=== PATIENT | female | born 1985 | race Caucasian/White ===

== ENCOUNTER 2016-10-10 17:22 | Emergency (ER) | payer OTHER ==
[~2016-10-10] VITALS: Ht 157.4 cm; Wt 68.0 kg
[~2016-10-10 17:22] MED LIST: ADDERALL XR 3030 MG PO; AMOXICILLIN500 MG PO; AMOXIL500 MG PO; ANAPROX DS550 MG PO; AUGMENTIN 875 M1 TAB PO; BACTRIM DS 8001 TA1 PO; CEPHALEXIN500 M1 PO; CYCLOBENZAPRINE10 MG PO; DARVOCET N 1001 TAB PO; HYDROCODONE BIT1 T11 PO; MACROBID100 M1 PO; MOTRIN800 MG PO; NAPROSYN500 MG PO; NEURONTIN300 MG PO; NEURONTIN600 MG PO; PEN-VEE K500 MG PO; PROVENTIL0.09 MG/AC IH; PYRIDIUM200 M1 PO; Phenergan25 MG PO; ROBAXIN750 MG PO; SEPTRA DS 800 M1 TAB PO; TRAMADOL HCL50 MG PO; VISTARIL25 MG PO; VISTARIL50 MG PO; ZITHROMAX Z PA250 MG PO; ZOFRAN ODT4 MG SL; ZOFRAN4 MG PO
[2016-10-10] MEDS ORDERED: SUBOXONE 2 MG-1 EACH SL (17:49)
[2016-10-10 17:53] LABS: HEMATOCRIT 39.3 % (37.0-47.0); HEMOGLOBIN 13.2 g/dl (12.0-16.0); MEAN CORPUSCULAR HGB 30.6 pg (27.0-31.0); MEAN CORPUSCULAR HGB CONC 33.6 g/dl (33.0-37.0); MEAN PLATELET VOLUME 10.4 fl (9.6-12.3); PLATELET COUNT AUTOMATED 227 10*3/uL (130-400); RED BLOOD COUNT 4.32 10*6/uL (4.10-5.10); RED CELL DISTRI WIDTH 14.5 % (0-14.5); WHITE BLOOD COUNT 26.9 10*3/uL (4.8-10.8)
[2016-10-10 18:19] LABS: EOSINOPHIL # 0.8 10*3/uL (0-0.4); EOSINOPHILS 3 % (1-4); LYMPHOCYTE # 1.9 10*3/uL (1.3-4.4); MONOCYTE # 1.3 10*3/uL (0.1-1.0); NEUTROPHIL # 22.9 10*3/uL (2.3-7.9); NEUTROPHILS 85 % (47-73); TOTAL CELLS COUNTED 100 #CELLS
[2016-10-10 18:20] LABS: PLATELET SUFFICIENCY NORMAL (NORMAL)
[2016-10-10 18:43] LABS: BUN 15 mg/dl (7-24); CARBON DIOXIDE 24 mmol/L (21-32); CHLORIDE 104 mmol/L (98-107); EST GLOM FILT AFRICAN AMERICAN > 60 ml/min; GLUCOSE 121 mg/dL (65-99); POTASSIUM 3.7 mmol/L (3.5-5.1); SODIUM 137 mmol/L (136-145)
[2016-10-10] MEDS ORDERED: CLINDAMYCIN HC300 MG PO (19:42)
== END 2016-10-10 19:50 | disposition home or self-care (01) ==
LOC: ED 17:22
PROVIDERS: Physician Assistant
DX: J03.90 Acute tonsillitis, unspecified (principal); F17.200 Nicotine dependence, unspecified, uncomplicated; Z88.0 Allergy status to penicillin; Z79.899 Other long term (current) drug therapy

== ENCOUNTER 2017-03-24 17:40 | Emergency (ER) | payer OTHER ==
[~2017-03-24] VITALS: Wt 70.3 kg
[~2017-03-24 17:40] MED LIST changes: +CLINDAMYCIN HC300 MG PO; +SUBOXONE 2 MG-1 EACH SL
[2017-03-24] MEDS ORDERED: VISTARIL25 MG PO (17:46)
[2017-03-24] MEDS ORDERED: CLINDAMYCIN HC300 MG PO (17:51)
== END 2017-03-24 17:59 | disposition home or self-care (01) ==
LOC: ED 17:40
DX: K08.89 Other specified disorders of teeth and supporting structures (principal); F17.200 Nicotine dependence, unspecified, uncomplicated; Z88.0 Allergy status to penicillin; Z79.899 Other long term (current) drug therapy

== ENCOUNTER 2018-03-31 16:30 | Emergency (ER) | payer OTHER ==
[~2018-03-31] VITALS: Wt 68.0 kg
[2018-03-31] MEDS ORDERED: PREDNISONE20 M1 PO (16:40)
[2018-03-31] MEDS ORDERED: BENADRYL25 M2 PO (16:40)
[2018-03-31] MEDS ORDERED: PREDNISONE10 MG PO (16:46)
== END 2018-03-31 17:05 | disposition home or self-care (01) ==
LOC: ED 16:30
DX: L25.9 Unspecified contact dermatitis, unspecified cause (principal); F17.200 Nicotine dependence, unspecified, uncomplicated; Z88.0 Allergy status to penicillin; Z88.1 Allergy status to other antibiotic agents; Z79.899 Other long term (current) drug therapy

== ENCOUNTER 2018-05-10 05:35 | Emergency (ER) | payer OTHER ==
[~2018-05-10] VITALS: Ht 157.4 cm; Wt 74.8 kg
[~2018-05-10 05:35] MED LIST changes: +BENADRYL25 M2 PO; +PREDNISONE10 MG PO; +PREDNISONE20 M1 PO
[2018-05-10] MEDS ORDERED: CLINDAMYCIN HC300 MG PO (06:27)
== END 2018-05-10 06:50 | disposition home or self-care (01) ==
LOC: ED 05:35
DX: K02.9 Dental caries, unspecified (principal); F17.200 Nicotine dependence, unspecified, uncomplicated; Z88.0 Allergy status to penicillin; Z79.899 Other long term (current) drug therapy

== ENCOUNTER → 2018-06-18 | Outpatient (CLI) | payer OTHER ==
--- NOTE | ~2018-06-18 | EKG ---
[place], [place] ELECTROCARDIOGRAM REPORT NAME: CHUCKY AC UNIT #: [id number] ROOM: DOCTOR: EPIPHVANDA DRAFT REPORT BIRTHDATE: [birth year] [facility] Test Date: 2018-06-18 Test Time: 11:15:25 Pat Name: CHUCKY AC Department: Room: Gender: F [employer] Manager: Sindy Gamino : 1985 Requested By: SARA MONTOYA Order Number: [id number] Reading MD: Harjit Gutierrez MD Measurements Intervals [place] Rate: 85 P: 55 [place]: 142 QRS: 66 QRSD: 66 T: 45 QT: 365 QTc: 434 Interpretive Statements Sinus rhythm Nonspecific ST T changes Electronically Signed On 06-18-2018 11:29:29 PDT by Harjit Gutierrez MD CM:EKGRPT:ELECTROCARDIOGRAM REPORT [id number] SARA SEE DRAFT REPORT SARA MONTOYA
== END | disposition home or self-care (01) ==
LOC: CARD 10:59 → LAB 10:59
DX: Z51.81 Encounter for therapeutic drug level monitoring (principal); F90.9 Attention-deficit hyperactivity disorder, unspecified type; Z79.899 Other long term (current) drug therapy

== ENCOUNTER → 2018-08-04 | Outpatient (CLI) | payer OTHER ==
[2018-08-04 12:44] LABS: URINE AMPHETAMINES > 1000 (1000ng/ml); URINE BARBITURATES < 200 (200ng/ml); URINE BENZODIAZEPINES < 200 (200ng/ml); URINE CANNABINOIDS (THC) < 50 (50ng/ml); URINE COCAINE < 300 (300ng/ml); URINE METHADONE < 300 (300ng/ml); URINE OPIATES < 300 (300ng/ml)
[2018-08-04 12:45] LABS: URINE PHENCYCLIDINE < 25 (25ng/ml)
== END | disposition home or self-care (01) ==
LOC: LAB 12:00
PROVIDERS: Internal Medicine
DX: F11.20 Opioid dependence, uncomplicated (principal)

== ENCOUNTER 2019-06-25 19:47 | Emergency (ER) | payer OTHER ==
[~2019-06-25] VITALS: Ht 157.4 cm; Wt 59.0 kg
[2019-06-25 20:19] LABS: BASO # 0.1 10*3/uL (0.0-0.1); BASO % 0.6 % (0.0-1.0); EOS # 0.3 10*3/uL (0.0-0.4); EOS % 2.8 % (1.0-4.0); HEMATOCRIT 39.4 % (37.0-47.0); HEMOGLOBIN 12.9 g/dl (12.0-16.0); LYMPH # 2.7 10*3/uL (1.3-4.4); LYMPH % 29.2 % (27.0-41.0); MEAN CELL VOLUME 93.1 fl (81.0-99.0); MEAN CORPUSCULAR HGB 30.5 pg (27.0-31.0); MEAN CORPUSCULAR HGB CONC 32.7 g/dl (33.0-37.0); MEAN PLATELET VOLUME 9.6 fl (9.6-12.3); MONO # 0.7 10*3/uL (0.1-1.0); NEUT # 5.5 10*3/uL (2.3-7.9); NEUT % 59.2 % (47.0-73.0); PLATELET COUNT AUTOMATED 334 10*3/uL (130-400); RED BLOOD COUNT 4.23 10*6/uL (4.10-5.10); WHITE BLOOD COUNT 9.3 10*3/uL (4.8-10.8)
[2019-06-25 20:34] LABS: ALBUMIN 3.9 gm/dl (3.1-4.5); ALKALINE PHOSPHATASE 94 U/L (45-117); BUN 16 mg/dl (7-24); CHLORIDE 107 mmol/L (98-107); CREATININE 0.83 mg/dL (0.55-1.02); POTASSIUM 3.9 mmol/L (3.5-5.1); SGOT/AST 25 IU/L (3-35); SGPT/ALT 32 U/L (12-78); SODIUM 138 mmol/L (136-145); TOTAL PROTEIN 7.6 gm/dL (6.4-8.2)
[2019-06-25 20:35] LABS: ACETAMINOPHEN (TYLENOL) < 5.0 ug/ml (10-30)
[2019-06-25 20:39] LABS: B-hCG (QUALITATIVE) NEGATIVE (NEGATIVE)
[2019-06-25 20:40] LABS: ETHYL ALCOHOL < 3.0 mg/dl (<3)
[2019-06-26 08:17] LABS: URINE AMPHETAMINES > 1000 (1000ng/ml); URINE BARBITURATES < 200 (200ng/ml); URINE BENZODIAZEPINES < 200 (200ng/ml); URINE CANNABINOIDS (THC) > 50 (50ng/ml); URINE COCAINE < 300 (300ng/ml); URINE METHADONE < 300 (300ng/ml); URINE OPIATES < 300 (300ng/ml)
[2019-06-26 08:18] LABS: URINE PHENCYCLIDINE < 25 (25ng/ml)
[2019-06-26 08:25] LABS: BACTERIA 1+; BILIRUBIN NEGATIVE (NEGATIVE); BLOOD NEGATIVE (NEGATIVE); CLARITY SL CLOUDY (CLEAR); COLOR YELLOW (YELLOW); GLUCOSE NEGATIVE (NEGATIVE); KETONE NEGATIVE (NEGATIVE); LEUKO ESTERASE NEGATIVE (NEGATIVE); NITRITE NEGATIVE (NEGATIVE); UROBILINOGEN 0.2 E.U./dl (0.2-1.0)
== END 2019-06-26 12:48 | disposition home health service (06) ==
LOC: ED 19:47
PROVIDERS: Emergency Medicine Emergency Medical Services
DX: F31.9 Bipolar disorder, unspecified (principal); F17.200 Nicotine dependence, unspecified, uncomplicated; Z88.0 Allergy status to penicillin; Z79.899 Other long term (current) drug therapy; Z79.2 Long term (current) use of antibiotics

== ENCOUNTER 2020-01-22 05:56 | Emergency (ER) | payer OTHER ==
[~2020-01-22] VITALS: Ht 157.4 cm; Wt 68.0 kg
[2020-01-22 06:48] LABS: BASO % 0.2 % (0.0-1.0); EOS # 0.2 10*3/uL (0.0-0.4); EOS % 1.2 % (1.0-4.0); HEMATOCRIT 36.5 % (37.0-47.0); LYMPH # 1.4 10*3/uL (1.3-4.4); LYMPH % 9.2 % (27.0-41.0); MEAN CORPUSCULAR HGB 29.9 pg (27.0-31.0); MEAN CORPUSCULAR HGB CONC 32.9 g/dl (33.0-37.0); MEAN PLATELET VOLUME 9.2 fl (9.6-12.3); MONO # 0.7 10*3/uL (0.1-1.0); MONO % 4.5 % (3.0-9.0); NEUT % 84.2 % (47.0-73.0); PLATELET COUNT AUTOMATED 287 10*3/uL (130-400); RED BLOOD COUNT 4.01 10*6/uL (4.10-5.10); RED CELL DISTRI WIDTH 13.3 % (0-14.5); WHITE BLOOD COUNT 15.4 10*3/uL (4.8-10.8)
[2020-01-22 07:03] LABS: ALBUMIN 3.5 gm/dl (3.1-4.5); ALKALINE PHOSPHATASE 75 U/L (45-117); BUN 20 mg/dl (7-24); CHLORIDE 111 mmol/L (98-107); CREATININE 0.72 mg/dL (0.55-1.02); POTASSIUM 3.3 mmol/L (3.5-5.1); SGOT/AST 47 IU/L (3-35); SGPT/ALT 40 U/L (12-78); SODIUM 143 mmol/L (136-145); TOTAL PROTEIN 6.7 gm/dL (6.4-8.2)
[2020-01-22 07:04] LABS: TROPONIN I < 0.015 ng/ml (<0.045)
[2020-01-22 08:06] LABS: URINE AMPHETAMINES > 1000 (1000ng/ml); URINE BARBITURATES < 200 (200ng/ml); URINE BENZODIAZEPINES < 200 (200ng/ml); URINE CANNABINOIDS (THC) > 50 (50ng/ml); URINE COCAINE < 300 (300ng/ml); URINE METHADONE < 300 (300ng/ml); URINE OPIATES < 300 (300ng/ml)
[2020-01-22 08:11] LABS: URINE PHENCYCLIDINE < 25 (25ng/ml)
== END 2020-01-22 11:23 | disposition home or self-care (01) ==
LOC: ED 05:56
PROVIDERS: Emergency Medicine; Emergency Medicine Emergency Medical Services
DX: F19.10 Other psychoactive substance abuse, uncomplicated (principal); F31.9 Bipolar disorder, unspecified; F17.200 Nicotine dependence, unspecified, uncomplicated; Z88.0 Allergy status to penicillin

== ENCOUNTER 2020-05-18 12:36 | Emergency (ER) | payer OTHER ==
[~2020-05-18] VITALS: Ht 157.4 cm; Wt 65.3 kg
[2020-05-18 13:13] LABS: BILIRUBIN Negative (Negative); BLOOD 1+ (Negative); CLARITY Cloudy (Clear); COLOR Yellow (Yellow); GLUCOSE Negative (Negative); KETONE Trace (Negative); LEUKO ESTERASE 1+ (Negative); NITRITE Positive (Negative); PH 5.5 (4.5-8.0); SPECIFIC GRAVITY 1.025 (1.001-1.030); UROBILINOGEN 0.2 E.U./dl (0.0-1.0)
[2020-05-18 13:23] LABS: URINE AMPHETAMINES > 1000 (1000ng/ml); URINE BARBITURATES < 200 (200ng/ml); URINE BENZODIAZEPINES < 200 (200ng/ml); URINE CANNABINOIDS (THC) > 50 (50ng/ml); URINE COCAINE < 300 (300ng/ml); URINE METHADONE < 300 (300ng/ml); URINE OPIATES < 300 (300ng/ml)
[2020-05-18 13:24] LABS: URINE PHENCYCLIDINE < 25 (25ng/ml)
[2020-05-18 13:28] LABS: BACTERIA 3+; WBC 21-30 wbc/hpf (0-5)
== END 2020-05-18 13:16 | disposition left against medical advice (07) ==
LOC: ED 12:36
PROVIDERS: Physician Assistant
DX: Z04.3 Encounter for examination and observation following other accident (principal); Z88.0 Allergy status to penicillin; Z53.29 Procedure and treatment not carried out because of patient's decision for other reasons; W18.39XA Other fall on same level, initial encounter; Y93.89 Activity, other specified; Y92.89 Other specified places as the place of occurrence of the external cause; Y99.8 Other external cause status

== ENCOUNTER 2020-07-15 07:14 | Emergency (ER) | payer OTHER ==
[~2020-07-15] VITALS: Ht 157.4 cm; Wt 63.5 kg
== END 2020-07-15 07:45 | disposition home or self-care (01) ==
LOC: ED 07:14
DX: L24.5 Irritant contact dermatitis due to other chemical products (principal); F41.9 Anxiety disorder, unspecified; F31.9 Bipolar disorder, unspecified; F17.200 Nicotine dependence, unspecified, uncomplicated; Y08.89XA Assault by other specified means, initial encounter; Y93.89 Activity, other specified; Y92.89 Other specified places as the place of occurrence of the external cause; Y99.8 Other external cause status

== ENCOUNTER 2021-05-27 17:48 | Observation (INO) | payer OTHER ==
[~2021-05-27] VITALS: Ht 157.4 cm; Wt 79.4 kg
[2021-05-27 19:07] VITALS: BP 118/62
[2021-05-27 19:28] LABS: BASO # 0.1 10*3/uL (0.0-0.1); BASO % 0.9 % (0.0-1.0); EOS # 1.4 10*3/uL (0.0-0.4); EOS % 13.3 % (1.0-4.0); HEMATOCRIT 37.3 % (37.0-47.0); LYMPH # 2.1 10*3/uL (1.3-4.4); LYMPH % 19.8 % (27.0-41.0); MEAN CELL VOLUME 92.8 fl (81.0-99.0); MEAN CORPUSCULAR HGB 30.6 pg (27.0-31.0); MEAN PLATELET VOLUME 9.3 fl (9.6-12.3); MONO # 0.9 10*3/uL (0.1-1.0); MONO % 8.1 % (3.0-9.0); NEUT # 6.1 10*3/uL (2.3-7.9); NEUT % 57.7 % (47.0-73.0); PLATELET COUNT AUTOMATED 301 10*3/uL (130-400); RED BLOOD COUNT 4.02 10*6/uL (4.10-5.10); RED CELL DISTRI WIDTH 12.3 % (0-14.5); WHITE BLOOD COUNT 10.5 10*3/uL (4.8-10.8)
[2021-05-27 19:45] LABS: ALKALINE PHOSPHATASE 66 U/L (45-117); BUN 21 mg/dl (7-24); CHLORIDE 106 mmol/L (98-107); CREATININE 0.94 mg/dL (0.55-1.02); POTASSIUM 3.8 mmol/L (3.5-5.1); SGOT/AST 85 IU/L (3-35); SGPT/ALT 127 U/L (12-78); SODIUM 139 mmol/L (136-145); TOTAL PROTEIN 7.4 gm/dL (6.4-8.2)
[2021-05-27 19:58] LABS: CPK 1021 U/L (26-192)
[2021-05-27 20:00] LABS: CKMB 10.6 ng/ml (0.5-3.6)
[2021-05-27 23:44] VITALS: BP 104/65
[2021-05-28 02:39] LABS: BILIRUBIN 1+ (Negative); BLOOD 2+ (Negative); CLARITY Cloudy (Clear); COLOR Dark Yellow (Yellow); GLUCOSE Negative (Negative); KETONE Trace (Negative); LEUKO ESTERASE Trace (Negative); NITRITE Negative (Negative); SPECIFIC GRAVITY >= 1.030 (1.001-1.030)
[2021-05-28 02:48] LABS: URINE AMPHETAMINES > 1000 (1000ng/ml); URINE BARBITURATES < 200 (200ng/ml); URINE BENZODIAZEPINES < 200 (200ng/ml); URINE CANNABINOIDS (THC) > 50 (50ng/ml); URINE COCAINE < 300 (300ng/ml); URINE METHADONE < 300 (300ng/ml); URINE OPIATES < 300 (300ng/ml); URINE PHENCYCLIDINE < 25 (25ng/ml)
[2021-05-28 03:00] LABS: EPITHELIAL CELLS 21-30
[2021-05-28 03:02] LABS: BACTERIA TRACE; RBC 16-20 rbc/hpf (0-2)
[2021-05-28 06:22] LABS: HEMATOCRIT 35.5 % (37.0-47.0); MEAN CELL VOLUME 93.9 fl (81.0-99.0); MEAN PLATELET VOLUME 10.1 fl (9.6-12.3); PLATELET COUNT AUTOMATED 245 10*3/uL (130-400); RED BLOOD COUNT 3.78 10*6/uL (4.10-5.10); RED CELL DISTRI WIDTH 12.3 % (0-14.5); WHITE BLOOD COUNT 6.6 10*3/uL (4.8-10.8)
[2021-05-28 06:32] LABS: MANUAL DIFF REFLEX YES
[2021-05-28 06:37] LABS: ALKALINE PHOSPHATASE 56 U/L (45-117); BUN 23 mg/dl (7-24); CHLORIDE 109 mmol/L (98-107); CREATININE 0.69 mg/dL (0.55-1.02); POTASSIUM 3.7 mmol/L (3.5-5.1); SGOT/AST 68 IU/L (3-35); SGPT/ALT 113 U/L (12-78); SODIUM 140 mmol/L (136-145); TOTAL PROTEIN 6.3 gm/dL (6.4-8.2)
[2021-05-28 07:20] LABS: BASOPHILS 2 % (0-1); TOTAL CELLS COUNTED 100 #CELLS
[2021-05-28 07:21] LABS: PLATELET SUFFICIENCY NORMAL (NORMAL)
[2021-05-28 08:00] VITALS: BP 98/50
[2021-05-28] MEDS ORDERED: ZITHROMAX250 MG PO (11:03)
[2021-05-28 11:46] VITALS: BP 118/60
== END 2021-05-28 11:52 | disposition home or self-care (01) ==
LOC: ED 17:48 → 5E 22:35 → EDHOLD 22:35 → 5E 22:48
PROVIDERS: Internal Medicine; Physician Assistant; ADMIT Internal Medicine; ATTEND Internal Medicine
DX: J18.9 Pneumonia, unspecified organism (principal); R74.8 Abnormal levels of other serum enzymes; R89.7 Abnormal histological findings in specimens from other organs, systems and tissues; R74.01 Elevation of levels of liver transaminase levels; F41.9 Anxiety disorder, unspecified; F15.10 Other stimulant abuse, uncomplicated; F19.10 Other psychoactive substance abuse, uncomplicated

== ENCOUNTER 2022-06-29 13:27 | Emergency (ER) | payer OTHER ==
[~2022-06-29 13:27] MED LIST changes: +ZITHROMAX250 MG PO
[2022-06-29 13:50] LABS: BASO % 0.6 % (0.0-1.0); EOS # 0.4 10*3/uL (0.0-0.4); EOS % 6.1 % (1.0-4.0); HEMATOCRIT 42.1 % (37.0-47.0); LYMPH # 1.8 10*3/uL (1.3-4.4); LYMPH % 26.3 % (27.0-41.0); MEAN CELL VOLUME 89.8 fl (81.0-99.0); MEAN CORPUSCULAR HGB 30.1 pg (27.0-31.0); MEAN CORPUSCULAR HGB CONC 33.5 g/dl (33.0-37.0); MEAN PLATELET VOLUME 9.9 fl (9.6-12.3); MONO # 0.6 10*3/uL (0.1-1.0); MONO % 8.5 % (3.0-9.0); NEUT # 3.9 10*3/uL (2.3-7.9); NEUT % 58.4 % (47.0-73.0); PLATELET COUNT AUTOMATED 256 10*3/uL (130-400); RED BLOOD COUNT 4.69 10*6/uL (4.10-5.10); RED CELL DISTRI WIDTH 12.9 % (0-14.5); WHITE BLOOD COUNT 6.7 10*3/uL (4.8-10.8)
[2022-06-29 14:08] LABS: ALKALINE PHOSPHATASE 65 U/L (46-116); BUN 12 mg/dl (9-23); CHLORIDE 110 mmol/L (98-107); SGPT/ALT 32 U/L (10-49); TOTAL PROTEIN 7.1 gm/dL (6.0-8.0)
== END 2022-06-29 16:34 | disposition home or self-care (01) ==
LOC: ED 13:27
PROVIDERS: Emergency Medicine
DX: R07.89 Other chest pain (principal); E11.9 Type 2 diabetes mellitus without complications; E78.00 Pure hypercholesterolemia, unspecified; F32.A Depression, unspecified; Z88.0 Allergy status to penicillin; Z98.890 Other specified postprocedural states; F17.200 Nicotine dependence, unspecified, uncomplicated; F12.10 Cannabis abuse, uncomplicated; F15.10 Other stimulant abuse, uncomplicated

== ENCOUNTER 2023-12-26 04:19 | Inpatient (IN) | payer OTHER ==
[2023-12-26] VITALS (9 sets, daily range): BP systolic 99–157; BP diastolic 48–79
[~2023-12-26] VITALS: Ht 157.4 cm; Wt 93.0 kg
[2023-12-26] MEDS ORDERED: methylPREDNISolone sod succ 125 MG VIAL IV ONE (04:35)
[2023-12-26] MEDS ORDERED: Albuterol Sulf/Ipratropium 3 ML VIAL NEB ONE (04:35)
[2023-12-26] MEDS ORDERED: LORazepam 2 MG/ML VIAL IV ONE (04:45)
[2023-12-26 04:58] LABS: HEMATOCRIT 35.8 % (37.0-47.0); MEAN CELL VOLUME 88.6 fl (81.0-99.0); MEAN CORPUSCULAR HGB 30.7 pg (27.0-31.0); MEAN CORPUSCULAR HGB CONC 34.6 g/dl (33.0-37.0); MEAN PLATELET VOLUME 10.2 fl (9.6-12.3); PLATELET COUNT AUTOMATED 244 10*3/uL (130-400); RED BLOOD COUNT 4.04 10*6/uL (4.10-5.10); RED CELL DISTRI WIDTH 13.2 % (0-14.5); WHITE BLOOD COUNT 18.8 10*3/uL (4.8-10.8)
[2023-12-26 05:00] LABS: MANUAL DIFF REFLEX YES
[2023-12-26 05:04] LABS: VENOUS BLOOD GAS O2 SAT 88.1 % (60.0-85.0)
[2023-12-26] MEDS ORDERED: Ceftriaxone Sodium 1 GM/10 ML SYR IV ONE (05:05)
[2023-12-26] MEDS ORDERED: SODIUM CHLORIDE 0.9% 1,000 ML IV SCH (05:05)
[2023-12-26] MEDS ORDERED: AZITHROMYCIN 250 ML IV ONE (05:05)
[2023-12-26 05:09] LABS: ACT PARTIAL THROMBO TIME 31.8 SECONDS (20.0-32.1)
[2023-12-26 05:19] LABS: BUN 13 mg/dl (9-23); CHLORIDE 106 mmol/L (98-107); POTASSIUM 3.4 mmol/L (3.4-5.1)
[2023-12-26] MEDS ORDERED: MAGNESIUM SULFATE 100 ML IV ONE (05:25)
[2023-12-26] MEDS ORDERED: Acetaminophen/Hydrocodone 5 MG/325 MG TABLET PO PRN (05:55)
[2023-12-26] MEDS ORDERED: BISACODYL 5 MG TAB PO PRN (05:55)
[2023-12-26] MEDS ORDERED: TEMAZEPAM 15 MG CAP PO PRN (05:55)
[2023-12-26] MEDS ORDERED: MORPHINE Sulfate 2 MG/ML SYR IV PRN (05:55)
[2023-12-26] MEDS ORDERED: ACETAMINOPHEN 650 MG SUPP R PRN (05:55)
[2023-12-26] MEDS ORDERED: Magnesium Hydroxide 30 ML UDC PO PRN (05:55)
[2023-12-26] MEDS ORDERED: ACETAMINOPHEN 325 MG TAB PO PRN (05:55)
[2023-12-26] MEDS ORDERED: BISACODYL 10 MG SUPP R PRN (05:55)
[2023-12-26] MEDS ORDERED: Pantoprazole Sodium 40 MG TAB PO PRN (05:55)
[2023-12-26] MEDS ORDERED: Ondansetron Hydrochloride 4 MG/2 ML VIAL IV PRN (06:20)
[2023-12-26] MEDS ORDERED: HEPARIN SODIUM 250 ML IV SCH (06:40)
[2023-12-26 07:25] LABS: ABG BASE EXCESS -6.5 mmol/L (-2.0-3.0); ABG O2 SATURATION 84.5 % (94.0-98.0); ARTERIAL BLOOD GAS PH 7.319 (7.350-7.450)
[2023-12-26 07:28] LABS: ARTERIAL BLOOD GAS PO2 54.9 mmHg (83.0-108.0)
[2023-12-26] MEDS ORDERED: Albuterol Sulf/Ipratropium 3 ML VIAL NEB SCH (07:30)
[2023-12-26 07:37] LABS: PLATELET SUFFICIENCY NORMAL (NORMAL); TOTAL CELLS COUNTED 100 #CELLS
[2023-12-26 09:28] LABS: BILIRUBIN Negative (Negative); BLOOD Negative (Negative); CLARITY Clear (Clear); COLOR Yellow (Yellow); GLUCOSE Negative (Negative); KETONE Negative (Negative); LEUKO ESTERASE Negative (Negative); NITRITE Negative (Negative); UROBILINOGEN 0.2 E.U./dl (0.0-1.0)
[2023-12-26 09:36] LABS: URINE AMPHETAMINES Negative (1000ng/ml); URINE BARBITURATES Negative (200ng/ml); URINE BENZODIAZEPINES Negative (200ng/ml); URINE CANNABINOIDS (THC) Negative (50ng/ml); URINE COCAINE Negative (300ng/ml); URINE METHADONE Negative (300ng/ml); URINE OPIATES Negative (300ng/ml); URINE PHENCYCLIDINE Negative (25ng/ml)
[2023-12-26 10:03] LABS: ABG BASE EXCESS -6.2 mmol/L (-2.0-3.0); ABG O2 SATURATION 98.2 % (94.0-98.0); ARTERIAL BLOOD GAS PH 7.365 (7.350-7.450); ARTERIAL BLOOD GAS PO2 138.5 mmHg (83.0-108.0)
[2023-12-26] MEDS ORDERED: Vancomycin Hydrochloride 1,000 MG VIAL IV SCH (10:10)
[2023-12-26] MEDS ORDERED: ATORVASTATIN CALCIUM 40 MG TABLET PO SCH (11:40)
[2023-12-26] MEDS ORDERED: METOPROLOL SUCCINATE XR 25 MG TAB PO SCH (11:40)
[2023-12-26] MEDS ORDERED: ASPIRIN ENTERIC COATED 81 MG TAB PO SCH (11:40)
[2023-12-26] MEDS ORDERED: Enoxaparin Sodium 100 MG/ML SYR SC SCH (11:50)
[2023-12-26] MEDS ORDERED: VANCOMYCIN/WATER FOR INJ (PEG) 300 ML IV SCH (14:00)
[2023-12-26] MEDS ORDERED: Albuterol Sulfate 1.25 MG/3 ML VIAL NEB SCH (14:35)
[2023-12-26] MEDS ORDERED: Albuterol Sulf/Ipratropium 3 ML VIAL NEB PRN (14:35)
[2023-12-26] MEDS ORDERED: Dextromethorphan Hydrobromid 1 TAB TAB PO SCH (22:55)
[2023-12-27] VITALS: BP 100/53
[2023-12-27 04:00] VITALS: BP 109/60
[2023-12-27 05:35] LABS: ALKALINE PHOSPHATASE 82 U/L (46-116); BUN 15 mg/dl (9-23); CHLORIDE 105 mmol/L (98-107); CHOLESTEROL 145 mg/dL (<200); LDL CHOLESTEROL 87 mg/dL (9-159); POTASSIUM 4.1 mmol/L (3.4-5.1); SGPT/ALT 20 U/L (5-49); TOTAL PROTEIN 6.5 gm/dL (6.0-8.0); TRIGLYCERIDES 167 mg/dl (<150)
[2023-12-27 06:28] LABS: BASO % 0.1 % (0.0-1.0); EOS % 0.1 % (1.0-4.0); HEMATOCRIT 32.3 % (37.0-47.0); LYMPH # 1.5 10*3/uL (1.3-4.4); LYMPH % 7.3 % (27.0-41.0); MEAN CORPUSCULAR HGB 30.6 pg (27.0-31.0); MEAN CORPUSCULAR HGB CONC 34.1 g/dl (33.0-37.0); MEAN PLATELET VOLUME 10.5 fl (9.6-12.3); MONO # 1.1 10*3/uL (0.1-1.0); MONO % 5.4 % (3.0-9.0); NEUT % 86.1 % (47.0-73.0); PLATELET COUNT AUTOMATED 286 10*3/uL (130-400); RED BLOOD COUNT 3.59 10*6/uL (4.10-5.10); RED CELL DISTRI WIDTH 13.5 % (0-14.5); WHITE BLOOD COUNT 20.9 10*3/uL (4.8-10.8)
[2023-12-27 07:07] LABS: VITAMIN D, 25-HYDROXY 40.7 ng/mL (30-100)
[2023-12-27 09:51] VITALS: BP 105/51
[2023-12-27] MEDS ORDERED: AZITHROMYCIN 250 ML IV SCH (10:00)
[2023-12-27] MEDS ORDERED: Ceftriaxone Sodium 1 GM in SYRINGE INFUSION 10 ML IV SCH (10:00)
[2023-12-27] MEDS ORDERED: LEVOFLOXACIN 150 ML IV ONE (10:08)
[2023-12-27] MEDS ORDERED: LEVOFLOXACIN 150 ML IV SCH (11:00)
[2023-12-27 12:00] VITALS: BP 111/62
[2023-12-27] MEDS ORDERED: Ketorolac Tromethamine 30 MG/ML VIAL IV ONE (13:15)
[2023-12-27] MEDS ORDERED: FUROSEMIDE 40 MG/4 ML VIAL IV ONE (13:15)
[2023-12-27 16:00] VITALS: BP 107/70
[2023-12-27 20:00] VITALS: BP 96/53
[2023-12-28] VITALS: BP 91/52
[2023-12-28 04:00] VITALS: BP 122/74
[2023-12-28 05:42] LABS: ALKALINE PHOSPHATASE 86 U/L (46-116); BUN 17 mg/dl (9-23); CHLORIDE 104 mmol/L (98-107); POTASSIUM 3.8 mmol/L (3.4-5.1); SGPT/ALT 21 U/L (5-49)
[2023-12-28 06:12] LABS: BASO # 0.1 10*3/uL (0.0-0.1); BASO % 0.4 % (0.0-1.0); EOS # 0.9 10*3/uL (0.0-0.4); EOS % 7.6 % (1.0-4.0); HEMATOCRIT 30.8 % (37.0-47.0); LYMPH # 2.1 10*3/uL (1.3-4.4); MEAN CELL VOLUME 90.3 fl (81.0-99.0); MEAN CORPUSCULAR HGB 29.9 pg (27.0-31.0); MEAN CORPUSCULAR HGB CONC 33.1 g/dl (33.0-37.0); MEAN PLATELET VOLUME 10.3 fl (9.6-12.3); MONO # 0.6 10*3/uL (0.1-1.0); MONO % 5.1 % (3.0-9.0); NEUT # 8.5 10*3/uL (2.3-7.9); NEUT % 68.8 % (47.0-73.0); PLATELET COUNT AUTOMATED 255 10*3/uL (130-400); RED BLOOD COUNT 3.41 10*6/uL (4.10-5.10); RED CELL DISTRI WIDTH 13.2 % (0-14.5); WHITE BLOOD COUNT 12.3 10*3/uL (4.8-10.8)
[2023-12-28 08:00] VITALS: BP 109/63
[2023-12-28] MEDS ORDERED: BENZONATATE 100 MG CAP PO PRN (10:50)
[2023-12-28 12:00] VITALS: BP 110/65
[2023-12-28 14:06] LABS: CRYPTOCOCCUS ANTIGEN Negative (Negative)
[2023-12-28] MEDS ORDERED: hydrOXYzine pamoate 25 MG CAP PO ONE (14:45)
[2023-12-28 17:24] VITALS: BP 122/59
[2023-12-28 20:00] VITALS: BP 110/41
[2023-12-29] VITALS: BP 115/67
[2023-12-29] MEDS ORDERED: VANCOMYCIN/WATER FOR INJ (PEG) 400 ML IV SCH
[2023-12-29 04:55] LABS: ALKALINE PHOSPHATASE 99 U/L (46-116); BUN 13 mg/dl (9-23); CHLORIDE 107 mmol/L (98-107); SGPT/ALT 21 U/L (5-49); TOTAL PROTEIN 5.9 gm/dL (6.0-8.0)
[2023-12-29 06:07] LABS: BASO # 0.1 10*3/uL (0.0-0.1); BASO % 0.5 % (0.0-1.0); EOS % 10.1 % (1.0-4.0); HEMATOCRIT 31.8 % (37.0-47.0); LYMPH # 2.7 10*3/uL (1.3-4.4); LYMPH % 26.3 % (27.0-41.0); MEAN CELL VOLUME 91.4 fl (81.0-99.0); MEAN CORPUSCULAR HGB 30.7 pg (27.0-31.0); MEAN CORPUSCULAR HGB CONC 33.6 g/dl (33.0-37.0); MONO # 0.7 10*3/uL (0.1-1.0); MONO % 6.6 % (3.0-9.0); NEUT # 5.5 10*3/uL (2.3-7.9); NEUT % 53.9 % (47.0-73.0); PLATELET COUNT AUTOMATED 276 10*3/uL (130-400); RED BLOOD COUNT 3.48 10*6/uL (4.10-5.10); RED CELL DISTRI WIDTH 13.2 % (0-14.5); WHITE BLOOD COUNT 10.2 10*3/uL (4.8-10.8)
[2023-12-29 08:00] VITALS: BP 112/43
[2023-12-29] MEDS ORDERED: IOHEXOL 350 MG/ML 100 ML VIAL IV ONE (10:50)
[2023-12-29] MEDS ORDERED: SODIUM CHLORIDE 0.9% 100 ML BAG IV ONE (10:50)
[2023-12-29 12:00] VITALS: BP 119/76
[2023-12-29] MEDS ORDERED: FUROSEMIDE 40 MG/4 ML VIAL IV SCH (13:10)
[2023-12-29 16:00] VITALS: BP 109/61
[2023-12-29 16:08] LABS: MYCOPLASMA PNEUMONIAE IGG 658 U/mL (0-99); MYCOPLASMA PNEUMONIAE IGM <770 U/mL (0-769)
[2023-12-29 20:00] VITALS: BP 116/69
[2023-12-30 05:37] LABS: BUN 12 mg/dl (9-23); CHLORIDE 102 mmol/L (98-107); POTASSIUM 3.9 mmol/L (3.4-5.1)
[2023-12-30 06:20] LABS: HEMATOCRIT 35.1 % (37.0-47.0); MEAN CELL VOLUME 90.9 fl (81.0-99.0); MEAN CORPUSCULAR HGB 29.5 pg (27.0-31.0); MEAN CORPUSCULAR HGB CONC 32.5 g/dl (33.0-37.0); MEAN PLATELET VOLUME 9.8 fl (9.6-12.3); PLATELET COUNT AUTOMATED 347 10*3/uL (130-400); RED BLOOD COUNT 3.86 10*6/uL (4.10-5.10); RED CELL DISTRI WIDTH 12.9 % (0-14.5); WHITE BLOOD COUNT 9.9 10*3/uL (4.8-10.8)
[2023-12-30 06:21] LABS: MANUAL DIFF REFLEX YES
[2023-12-30 07:11] LABS: BASOPHILS 1 % (0-1); POLYCHROMASIA SLIGHT; TOTAL CELLS COUNTED 100 #CELLS
[2023-12-30 07:21] LABS: OVALOCYTES FEW; VACUOLATION OF NEUTROPHILS SLIGHT
[2023-12-30 07:22] LABS: PLATELET SUFFICIENCY NORMAL (NORMAL)
[2023-12-30 08:00] VITALS: BP 99/51
[2023-12-30 10:30] VITALS: BP 103/42
[2023-12-30] MEDS ORDERED: Technetium Tc 99M Tetrofosmi 0.23 MG KIT IJ SCH (14:45)
[2023-12-30 16:00] VITALS: BP 98/54
[2023-12-30 20:00] VITALS: BP 110/52
[2023-12-31] VITALS: BP 108/60
[2023-12-31 04:00] VITALS: BP 97/55
[2023-12-31 06:05] LABS: MEAN CELL VOLUME 87.9 fl (81.0-99.0); MEAN CORPUSCULAR HGB 29.7 pg (27.0-31.0); MEAN CORPUSCULAR HGB CONC 33.8 g/dl (33.0-37.0); MEAN PLATELET VOLUME 9.5 fl (9.6-12.3); PLATELET COUNT AUTOMATED 362 10*3/uL (130-400); RED BLOOD COUNT 4.21 10*6/uL (4.10-5.10); RED CELL DISTRI WIDTH 12.8 % (0-14.5); WHITE BLOOD COUNT 11.2 10*3/uL (4.8-10.8)
[2023-12-31 06:14] LABS: MANUAL DIFF REFLEX YES
[2023-12-31] MEDS ORDERED: Regadenoson 0.4 MG/5 ML SYR IV ONE (06:48)
[2023-12-31 07:07] LABS: ATYPICAL LYMPHS 1 % (0-0); TOTAL CELLS COUNTED 100 #CELLS
[2023-12-31 07:08] LABS: PLATELET SUFFICIENCY NORMAL (NORMAL)
[2023-12-31 07:12] LABS: BUN 16 mg/dl (9-23); CHLORIDE 102 mmol/L (98-107); POTASSIUM 3.8 mmol/L (3.4-5.1)
[2023-12-31 08:00] VITALS: BP 106/51
[2023-12-31] MEDS ORDERED: AZITHROMYCIN 250 MG TAB PO SCH (10:00)
[2023-12-31 12:00] VITALS: BP 108/59
== END 2023-12-31 18:10 | disposition home or self-care (01) | DRG 720 ==
LOC: ED 04:19 → ICCU 05:42 → EDHOLD 05:42 → ICCU 08:05
PROVIDERS: Internal Medicine; Internal Medicine Critical Care Medicine; Student in an Organized Health Care Education/Training Program; ADMIT Internal Medicine; ATTEND Internal Medicine
PROC: 5A09357 Assistance with Respiratory Ventilation, Less than 24 Consecutive Hours, Continuous Positive Airway Pressure (ICD-10-PCS; 2023-12-26)
PROC: 5A0935A Assistance with Respiratory Ventilation, Less than 24 Consecutive Hours, High Flow/Velocity Cannula (ICD-10-PCS; 2023-12-27)
PROC: 5A0935A Assistance with Respiratory Ventilation, Less than 24 Consecutive Hours, High Flow/Velocity Cannula (ICD-10-PCS; 2023-12-28)
PROC: 5A0935A Assistance with Respiratory Ventilation, Less than 24 Consecutive Hours, High Flow/Velocity Cannula (ICD-10-PCS; 2023-12-29)
PROC: 4A02XM4 Measurement of Cardiac Total Activity, External Approach (ICD-10-PCS; principal; 2023-12-31)
PROC: 3E033HZ Introduction of Radioactive Substance into Peripheral Vein, Percutaneous Approach (ICD-10-PCS; 2023-12-31)
DX: A41.9 Sepsis, unspecified organism (principal); J96.01 Acute respiratory failure with hypoxia; E87.1 Hypo-osmolality and hyponatremia; I21.A1 Myocardial infarction type 2; J18.9 Pneumonia, unspecified organism; F12.10 Cannabis abuse, uncomplicated; F15.10 Other stimulant abuse, uncomplicated; R65.20 Severe sepsis without septic shock; E87.8 Other disorders of electrolyte and fluid balance, not elsewhere classified; R73.9 Hyperglycemia, unspecified; F41.9 Anxiety disorder, unspecified; F31.9 Bipolar disorder, unspecified; E83.42 Hypomagnesemia; Z20.822 Contact with and (suspected) exposure to COVID-19; Z88.0 Allergy status to penicillin; Z79.899 Other long term (current) drug therapy

== ENCOUNTER 2024-05-21 18:23 | Inpatient (IN) | payer OTHER ==
[~2024-05-21] VITALS: Ht 157.4 cm; Wt 74.9 kg
[2024-05-21 18:43] VITALS: BP 93/70
[2024-05-21] MEDS ORDERED: methylPREDNISolone sod succ 125 MG VIAL IM ONE (18:45)
[2024-05-21] MEDS ORDERED: Albuterol Sulf/Ipratropium 3 ML VIAL NEB ONE (18:45)
[2024-05-21 19:02] LABS: BASO # 0.1 10*3/uL (0.0-0.1); BASO % 0.5 % (0.0-1.0); EOS # 0.3 10*3/uL (0.0-0.4); EOS % 2.1 % (1.0-4.0); MEAN CELL VOLUME 92.6 fl (81.0-99.0); MEAN CORPUSCULAR HGB 30.6 pg (27.0-31.0); MEAN CORPUSCULAR HGB CONC 33.1 g/dl (33.0-37.0); MEAN PLATELET VOLUME 9.8 fl (9.6-12.3); MONO # 0.5 10*3/uL (0.1-1.0); MONO % 3.4 % (3.0-9.0); PLATELET COUNT AUTOMATED 233 10*3/uL (130-400); RED BLOOD COUNT 4.21 10*6/uL (4.10-5.10); RED CELL DISTRI WIDTH 13.2 % (0-14.5); WHITE BLOOD COUNT 13.2 10*3/uL (4.8-10.8)
[2024-05-21 19:20] LABS: BUN 11 mg/dl (9-23); CHLORIDE 111 mmol/L (98-107); POTASSIUM 3.7 mmol/L (3.4-5.1)
[2024-05-21] MEDS ORDERED: SODIUM CHLORIDE 0.9% 1,000 ML IV SCH (19:50)
[2024-05-21] MEDS ORDERED: AZITHROMYCIN 250 ML IV ONE (20:30)
[2024-05-21] MEDS ORDERED: ACETAMINOPHEN 325 MG TAB PO PRN (20:40)
[2024-05-21] MEDS ORDERED: Magnesium Hydroxide 30 ML UDC PO PRN (20:40)
[2024-05-21] MEDS ORDERED: Ondansetron Hydrochloride 4 MG/2 ML VIAL IV PRN (20:40)
[2024-05-21] MEDS ORDERED: Albuterol Sulf/Ipratropium 3 ML VIAL NEB SCH (20:50)
[2024-05-21] MEDS ORDERED: IOHEXOL 350 MG/ML 100 ML VIAL IV ONE (21:10)
[2024-05-21] MEDS ORDERED: SODIUM CHLORIDE 0.9% 100 ML BAG IV ONE (21:10)
[2024-05-21] MEDS ORDERED: FUROSEMIDE 20 MG/2 ML VIAL IV ONE ×2 (21:10→21:25)
[2024-05-21] MEDS ORDERED: Vancomycin Hydrochloride 1,000 MG in SODIUM CHLORIDE 0.9% 250 ML IV SCH (21:20)
[2024-05-21] MEDS ORDERED: GUAIFENESIN 600 MG TAB ER PO SCH (22:00)
[2024-05-21] MEDS ORDERED: Meropenem 50 ML IV SCH (22:00)
[2024-05-21 22:09] LABS: ABG O2 SATURATION 94.1 % (94.0-98.0); ARTERIAL BLOOD GAS PH 7.321 (7.350-7.450); ARTERIAL BLOOD GAS PO2 77.8 mmHg (83.0-108.0)
[2024-05-21 22:10] LABS: ABG BASE EXCESS -8.7 mmol/L (-2.0-3.0)
[2024-05-21 22:15] VITALS: BP 102/68
[2024-05-21 22:51] LABS: BILIRUBIN Negative (Negative); BLOOD Trace-Lysed (Negative); CLARITY Clear (Clear); COLOR Yellow (Yellow); GLUCOSE Negative (Negative); KETONE Negative (Negative); LEUKO ESTERASE Negative (Negative); NITRITE Negative (Negative); PH 5.5 (4.5-8.0); SPECIFIC GRAVITY >= 1.030 (1.001-1.030)
[2024-05-21 22:58] LABS: URINE AMPHETAMINES Negative (1000ng/ml); URINE BARBITURATES Negative (200ng/ml); URINE BENZODIAZEPINES Negative (200ng/ml); URINE CANNABINOIDS (THC) Positive (50ng/ml); URINE COCAINE Negative (300ng/ml); URINE METHADONE Negative (300ng/ml); URINE OPIATES Negative (300ng/ml); URINE PHENCYCLIDINE Negative (25ng/ml)
[2024-05-21 23:00] VITALS: BP 103/40
[2024-05-21 23:09] LABS: EPITHELIAL CELLS 21-30; RBC 0-2 rbc/hpf (0-2); WBC 0-2 wbc/hpf (0-5); YEAST TRACE
[2024-05-22] VITALS (11 sets, daily range): BP systolic 97–119; BP diastolic 54–69
[2024-05-22] MEDS ORDERED: VANCOMYCIN/WATER FOR INJ (PEG) 250 ML IV SCH
[2024-05-22 05:27] LABS: ALKALINE PHOSPHATASE 92 U/L (46-116); BUN 10 mg/dl (9-23); CHLORIDE 107 mmol/L (98-107); POTASSIUM 3.5 mmol/L (3.4-5.1); SGPT/ALT 16 U/L (5-49); TOTAL PROTEIN 7.1 gm/dL (6.0-8.0)
[2024-05-22] MEDS ORDERED: MAGNESIUM SULFATE 50 ML IV ONE (05:50)
[2024-05-22 06:20] LABS: HEMATOCRIT 37.5 % (37.0-47.0); MEAN CELL VOLUME 92.1 fl (81.0-99.0); MEAN CORPUSCULAR HGB 30.7 pg (27.0-31.0); MEAN CORPUSCULAR HGB CONC 33.3 g/dl (33.0-37.0); MEAN PLATELET VOLUME 10.5 fl (9.6-12.3); PLATELET COUNT AUTOMATED 268 10*3/uL (130-400); RED BLOOD COUNT 4.07 10*6/uL (4.10-5.10); RED CELL DISTRI WIDTH 13.2 % (0-14.5); WHITE BLOOD COUNT 19.3 10*3/uL (4.8-10.8)
[2024-05-22 06:22] LABS: MANUAL DIFF REFLEX YES
[2024-05-22 06:50] LABS: BURR CELLS MODERATE; TOTAL CELLS COUNTED 100 #CELLS
[2024-05-22 06:51] LABS: PLATELET SUFFICIENCY NORMAL (NORMAL); ROULEAUX SLIGHT
[2024-05-22] MEDS ORDERED: FUROSEMIDE 20 MG/2 ML VIAL IV ONE (09:05)
[2024-05-22] MEDS ORDERED: Enoxaparin Sodium 40 MG/0.4 ML SYR SC SCH (10:00)
[2024-05-22] MEDS ORDERED: MAVYRET 100-401 EACH PO (10:44)
[2024-05-22] MEDS ORDERED: WELLBUTRIN SR100 MG PO (10:45)
[2024-05-22] MEDS ORDERED: NICODERM CQ1 EAC2 TD (10:46)
[2024-05-22] MEDS ORDERED: LEVOFLOXACIN 750 MG TAB PO SCH (12:50)
[2024-05-22] MEDS ORDERED: Doxycycline Hyclate 100 MG,IV 1 EA in SODIUM CHLORIDE 0.9% 250 ML IV SCH (12:50)
[2024-05-22 13:20] LABS: URINE AMPHETAMINES Negative (1000ng/ml); URINE BARBITURATES Negative (200ng/ml); URINE BENZODIAZEPINES Negative (200ng/ml); URINE CANNABINOIDS (THC) Negative (50ng/ml); URINE COCAINE Negative (300ng/ml); URINE METHADONE Negative (300ng/ml); URINE OPIATES Negative (300ng/ml); URINE PHENCYCLIDINE Negative (25ng/ml)
[2024-05-22] MEDS ORDERED: buPROPion SR 100 MG TAB PO SCH (22:00)
[2024-05-23] VITALS: BP 104/56
[2024-05-23 04:00] VITALS: BP 111/60
[2024-05-23 06:09] LABS: ALKALINE PHOSPHATASE 85 U/L (46-116); BUN 15 mg/dl (9-23); CHLORIDE 107 mmol/L (98-107); POTASSIUM 3.6 mmol/L (3.4-5.1); SGPT/ALT 12 U/L (5-49); TOTAL PROTEIN 6.7 gm/dL (6.0-8.0)
[2024-05-23 06:27] LABS: BASO % 0.2 % (0.0-1.0); EOS # 0.3 10*3/uL (0.0-0.4); EOS % 1.4 % (1.0-4.0); HEMATOCRIT 37.6 % (37.0-47.0); MEAN CELL VOLUME 91.3 fl (81.0-99.0); MEAN CORPUSCULAR HGB 30.1 pg (27.0-31.0); MEAN PLATELET VOLUME 10.3 fl (9.6-12.3); MONO # 0.9 10*3/uL (0.1-1.0); MONO % 4.1 % (3.0-9.0); NEUT # 19.8 10*3/uL (2.3-7.9); NEUT % 87.3 % (47.0-73.0); PLATELET COUNT AUTOMATED 289 10*3/uL (130-400); RED BLOOD COUNT 4.12 10*6/uL (4.10-5.10); RED CELL DISTRI WIDTH 13.3 % (0-14.5); WHITE BLOOD COUNT 22.7 10*3/uL (4.8-10.8)
[2024-05-23 08:00] VITALS: BP 102/61
[2024-05-23] MEDS ORDERED: [UNRECOGNIZED DRUG - OTHER] PO SCH (10:00)
[2024-05-23] MEDS ORDERED: GLECAPREVIR PO SCH (10:00)
[2024-05-23] MEDS ORDERED: Ketorolac Tromethamine 15 MG/ML VIAL IV PRN (10:05)
[2024-05-23 12:00] VITALS: BP 106/66
[2024-05-23 16:00] VITALS: BP 94/53
[2024-05-23 20:00] VITALS: BP 102/58
[2024-05-24] VITALS: BP 111/65
[2024-05-24 04:00] VITALS: BP 121/75
[2024-05-24 06:20] LABS: BASO % 0.4 % (0.0-1.0); EOS % 8.3 % (1.0-4.0); HEMATOCRIT 34.1 % (37.0-47.0); MEAN CELL VOLUME 92.7 fl (81.0-99.0); MEAN CORPUSCULAR HGB 30.7 pg (27.0-31.0); MEAN CORPUSCULAR HGB CONC 33.1 g/dl (33.0-37.0); MEAN PLATELET VOLUME 9.8 fl (9.6-12.3); MONO # 0.7 10*3/uL (0.1-1.0); MONO % 6.2 % (3.0-9.0); NEUT # 6.5 10*3/uL (2.3-7.9); NEUT % 56.9 % (47.0-73.0); PLATELET COUNT AUTOMATED 287 10*3/uL (130-400); RED BLOOD COUNT 3.68 10*6/uL (4.10-5.10); RED CELL DISTRI WIDTH 13.1 % (0-14.5); WHITE BLOOD COUNT 11.4 10*3/uL (4.8-10.8)
[2024-05-24 07:03] LABS: BUN 19 mg/dl (9-23); CHLORIDE 107 mmol/L (98-107); POTASSIUM 3.7 mmol/L (3.4-5.1)
[2024-05-24 08:00] VITALS: BP 117/69
[2024-05-24] MEDS ORDERED: LEVOFLOXACIN750 M2 PO (11:15)
[2024-05-24 12:07] LABS: MYCOPLASMA PNEUMONIAE IGG 1603 U/mL (0-99); MYCOPLASMA PNEUMONIAE IGM <770 U/mL (0-769)
== END 2024-05-24 11:27 | disposition home or self-care (01) | DRG 720 ==
LOC: ED 18:23 → EDHOLD 20:30 → ICCU 20:30 → EDHOLD 20:58 → ICCU 05-22 21:11
PROVIDERS: Internal Medicine Critical Care Medicine; Nurse Practitioner Family; Student in an Organized Health Care Education/Training Program; ADMIT Internal Medicine; ATTEND Internal Medicine
PROC: 5A0935A Assistance with Respiratory Ventilation, Less than 24 Consecutive Hours, High Flow/Velocity Cannula (ICD-10-PCS; principal; 2024-05-22)
DX: A41.9 Sepsis, unspecified organism (principal); J80 Acute respiratory distress syndrome; J81.0 Acute pulmonary edema; J18.9 Pneumonia, unspecified organism; Z71.6 Tobacco abuse counseling; F17.210 Nicotine dependence, cigarettes, uncomplicated; E66.811 Obesity, class 1; D64.9 Anemia, unspecified; E83.42 Hypomagnesemia; R73.9 Hyperglycemia, unspecified; F31.9 Bipolar disorder, unspecified; F12.10 Cannabis abuse, uncomplicated; F10.10 Alcohol abuse, uncomplicated; Z20.822 Contact with and (suspected) exposure to COVID-19; Y90.9 Presence of alcohol in blood, level not specified; B18.2 Chronic viral hepatitis C; F41.1 Generalized anxiety disorder; R65.20 Severe sepsis without septic shock; Z88.0 Allergy status to penicillin; Z79.899 Other long term (current) drug therapy

== ENCOUNTER → 2024-05-27 | Outpatient (CLI) | payer OTHER ==
[~2024-05-27] MED LIST changes: +LEVOFLOXACIN750 M2 PO; +MAVYRET 100-401 EACH PO; +NICODERM CQ1 EAC2 TD; +WELLBUTRIN SR100 MG PO
[2024-05-27 12:03] LABS: BASO # 0.1 10*3/uL (0.0-0.1); BASO % 0.5 % (0.0-1.0); EOS # 0.5 10*3/uL (0.0-0.4); HEMATOCRIT 40.3 % (37.0-47.0); MEAN CELL VOLUME 91.6 fl (81.0-99.0); MEAN CORPUSCULAR HGB 30.5 pg (27.0-31.0); MEAN CORPUSCULAR HGB CONC 33.3 g/dl (33.0-37.0); MEAN PLATELET VOLUME 9.3 fl (9.6-12.3); MONO # 0.6 10*3/uL (0.1-1.0); NEUT # 6.1 10*3/uL (2.3-7.9); NEUT % 62.6 % (47.0-73.0); PLATELET COUNT AUTOMATED 347 10*3/uL (130-400); RED CELL DISTRI WIDTH 12.4 % (0-14.5); WHITE BLOOD COUNT 9.8 10*3/uL (4.8-10.8)
[2024-05-27 12:24] LABS: ALKALINE PHOSPHATASE 108 U/L (46-116); BUN 12 mg/dl (9-23); CHLORIDE 104 mmol/L (98-107); POTASSIUM 4.3 mmol/L (3.4-5.1); SGPT/ALT 45 U/L (5-49); TOTAL PROTEIN 7.1 gm/dL (6.0-8.0)
== END | disposition home or self-care (01) ==
LOC: LAB 11:28
PROVIDERS: ATTEND Internal Medicine
DX: J96.01 Acute respiratory failure with hypoxia (principal); D64.9 Anemia, unspecified; E83.42 Hypomagnesemia

== ENCOUNTER → 2024-06-02 | Outpatient (CLI) | payer OTHER | END | disposition home or self-care (01) | LOC: RESCLI 03:27 | PROVIDERS: ATTEND Internal Medicine | DX: R60.0 Localized edema (principal); F17.200 Nicotine dependence, unspecified, uncomplicated; B19.20 Unspecified viral hepatitis C without hepatic coma; F11.99 Opioid use, unspecified with unspecified opioid-induced disorder; A49.3 Mycoplasma infection, unspecified site; Z79.899 Other long term (current) drug therapy; Z98.890 Other specified postprocedural states; Z88.0 Allergy status to penicillin ==

== ENCOUNTER → 2024-06-09 | Outpatient (CLI) | payer OTHER | END | disposition home or self-care (01) | LOC: US 06-07 13:30 | PROVIDERS: ATTEND Family Medicine | DX: R60.0 Localized edema (principal); M79.662 Pain in left lower leg; M79.661 Pain in right lower leg ==

== ENCOUNTER 2024-10-14 11:02 | Emergency (ER) | payer OTHER ==
[~2024-10-14] VITALS: Ht 157.4 cm; Wt 81.6 kg
[2024-10-14] MEDS ORDERED: BENZOCAINE 20% 11.9 GM GEL T STA (12:27)
[2024-10-14] MEDS ORDERED: CLINDAMYCIN HC300 MG PO (13:25)
== END 2024-10-14 12:31 | disposition home or self-care (01) ==
LOC: ED 11:02
DX: K08.89 Other specified disorders of teeth and supporting structures (principal); K03.81 Cracked tooth; Z88.0 Allergy status to penicillin; Z79.899 Other long term (current) drug therapy; Z87.891 Personal history of nicotine dependence